=== PATIENT | male | born 1935 | race Caucasian/White ===

== ENCOUNTER → 2016-10-16 | Outpatient (CLI) | payer MEDICARE, OTHER ==
[~2016-10-16] MED LIST: CALC-1119 PO; DENO120V SQ; DILT240C95 PO; ENZA40CA PO; ESCI10TA47 PO; FINA5TAB40 PO; FOLI5CAP PO; L. R1TAB PO; METO25TA3 PO; MULT1TAB69 PO; ONDA-55 PO; RIVA20TA PO; SALINE FLUSH 10ml SYRINGE ONE; [UNRECOGNIZED DRUG - CODE] SQ
--- NOTE | 2016-10-16 13:13 | DI ---
Indication: ITS.REASON: C61 PROSTATE CA PROCEDURE: NM BONE SCAN, WHOLE BODY: Encounter: Subsequent Comparison: 07/13/2016 Technique: 26.4 mCi of Tc-99m MDP was administered intravenously. Anterior and posterior planar whole-body and spot images were obtained. FINDINGS: There is some increased activity in a few of the anterior right ribs including a small amount at T5 with stable foci at T7 and T8. There is probable degenerative uptake seen in the right greater than left knee.. There is no abnormal radiotracer uptake to suggest bony metastasis. IMPRESSION: No significant change from prior examination. Persistent foci in the anterior right ribs, likely posttraumatic. .
== END ==
LOC: IMA 07:39
PROVIDERS: ATTEND Internal Medicine Hematology & Oncology
DX: C61 Malignant neoplasm of prostate (principal)
CPT/HCPCS: 78306; A9503